=== PATIENT | male | born 1995 | race Asian ===

== ENCOUNTER 2017-05-29 17:03 | Inpatient (IN) | payer OTHER ==
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
[2017-05-29] MEDS ORDERED: ERTAPENEM 1 GM VIAL ONE (17:33)
[2017-05-29 17:35] LABS: PLATELET COUNT 294 10^3/uL (150-400)
[2017-05-30] MEDS ORDERED: NICOTINE POLACRILEX 2 MG GUM B PRN (00:43)
[2017-05-30] MEDS ORDERED: ACETAMINOPHEN 325 MG TAB PO PRN (00:43)
[2017-05-30] MEDS ORDERED: LORazepam 0.5 MG TAB PO PRN ×2 (00:43→11:26)
[2017-05-30] MEDS ORDERED: MAG HYDROX/AL HYDROX/SIMETH 30 ML UDCUP PO PRN (00:44)
[2017-05-30] MEDS ORDERED: MAGNESIUM HYDROXIDE 30 ML UDCUP PO PRN (00:44)
[2017-05-30 01:45] VITALS: O2SAT 97
[2017-05-30] MEDS ORDERED: IBUPROFEN 200 MG TAB PO PRN (11:26)
[2017-05-30] MEDS ORDERED: hydrOXYzine HCL 25 MG TAB PO PRN (12:10)
[2017-05-30] MEDS: FLUoxetine 10 MG CAP PO SCH (12:50)
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
--- NOTE | 2017-05-30 16:39 | BCON ---
[f rep st] BEHAVIORAL HEALTH CONSULTATION INTERNAL MEDICINE CONSULTATION DATE OF CONSULTATION: 05/30/2017 REFERRING PHYSICIAN: Kenan Salamanca MD REASON FOR REFERRAL: Medical clearance for inpatient behavioral health stay. HISTORY OF PRESENT ILLNESS: This patient came to the emergency department from [facility] on an M1 hold. His aunt with whom he lives, had taken him to [facility] because he had reported to her an overdose on Adderall in an attempt at self-harm. He was depressed and distraught over a recent break-up with his girlfriend. He was evaluated by the mental health team and admitted for further psychiatric care. He is currently without any medical complaints. PAST MEDICAL HISTORY: 1. Asthma. 2. Attention deficit hyperactivity disorder. 3. Recurrent depressive episodes. PAST SURGICAL HISTORY: He had eye surgery when he was a child. He does not know what kind of surgery or reason for it. MEDICATIONS: Prior to admission he was taking ibuprofen and Adderall. ALLERGIES: Listed to eggs. 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 He lives with his aunt. He is from [place]. He is a nonsmoker and nondrinker. FAMILY HISTORY: Noncontributory. REVIEW OF SYSTEMS: He reports chronic back pain. He reports that his weight typically fluctuates and on chart review there is an 8 kg weight gain documented since December of 2015. He denies any difficulty breathing. He denies any visual problems. Otherwise a 10-point review of systems is negative. PHYSICAL EXAM: VITAL SIGNS: Blood pressure is 116/65, heart rate is 110, respiratory rate is 20, oxygen saturation is 97% on room air. Temperature is 37 degrees centigrade. GENERAL: This is a well-nourished, well-developed, overweight man, appears his chronologic age, cooperative, and in no acute distress. HEENT: Extraocular movements are intact. Pupils are equal, round, and reactive to light. Mucous membranes are moist. Dentition is in good condition. He has an uncrowded airway, Mallampati class 1. NECK: Supple. HEART: There is a regular rate and rhythm with no murmurs, rubs, or gallops. LUNGS: Clear to auscultation bilaterally. ABDOMEN: Benign. NEUROLOGIC: He is alert and oriented x3. Cranial nerves 2-12 are grossly intact. There is no focal weakness. Sensation is intact to light touch and gait is within normal limits. LABORATORY STUDIES: From yesterday in the emergency department and today, CBC revealed microcytosis with his MCV small at 71.8. He also had reduced mean cellular hemoglobin and mean cellular hemoglobin content and a large RDW at 16.5. Otherwise, there was no anemia and there were normal white count and platelet count. Serum chemistry revealed normal renal function and electrolytes. Liver function tests were within normal limits. Lipid panel showed a high normal cholesterol at 200, but a very high HDL cholesterol at 90. TSH was 1.15. Toxicology screen in the urine was non-negative for amphetamines and was otherwise negative for substances of abuse. ASSESSMENT/RECOMMENDATIONS: 1. Mental health issues pending further evaluation and management per Psychiatry and the mental health team. 2. Overweight status and gradual weight gain. Might exercise caution with medications that could cause further weight gain, however his psychosocial stabilization takes first priority at present. 3. Stimulant overdose and tachycardia. Reportedly, he vomited the overdose of Adderall so the tachycardia may not be related to stimulant use. He did not appear tachycardic on the current exam and he is not in any distress. Advise continued monitoring of his heart rate and if he remains tachycardic, obtaining an EKG would be in order. 4. Microcytosis. As he is from origin he could have a thalassemia variant. There was no anemia. It is possible that there is iron deficiency. Since there is no anemia I will not pursue this diagnosis further at this time, but he can follow up with primary care after his discharge. I see no medical contraindications to this patient's continued stay on the inpatient behavioral health unit or to any psychiatric medications or procedures. Thank you very much for including me in the care of this patient and please do not hesitate to contact me or the hospitalist service should there be need for further medical evaluation. /[id number]/MODL MTDD
[2017-05-31] MEDS: FLUoxetine 10 MG CAP PO SCH (08:39)
--- NOTE | 2017-05-31 10:50 | SOAPPROG ---
SOAP Progress Note Assessment/Plan: Assessment: Major Depressive Disorder, recurrent severe Unspecified Anxiety Disorder ADHD inattentive type R/O Adjustment Disorder or Personality Disorder R/O Bipolar Disorder type II Patient appears less anxious and less dysphoric today and denies suicidal thoughts. Plan: Patient is on M-1 hold SP1 precautions Monitor mood/affect, judgment; encouraged patient to work on safety plan Supportive therapy regarding relationship problems; reviewed strengths, goals, supports Continue Fluoxetine 10mg QAM, started 05/30 Continue Hydroxyzine 25mg PRN anxiety/sleep, started 05/30 Restart Adderall 10mg QAM. Discussed risk of anxiety and possible interaction with Fluoxetine (nausea, insomnia, irritability) Discussed risk of katja, agitation, worsening SI with antidepressants Coordinate discharge planning with [facility] 05/31/17 10:50 Subjective: CC: "OK" Patient reports feeling "OK" this AM. Reports difficulty falling asleep and took Hydroxyzine last night with benefit with sleep. Denies side effects from Fluoxetine other than possible mild restlessness. Denies feeling sedated. Reports in past year having excessive worry about girlfriend and spending hours a day calling her and checking on her and doing things for her 'she is sensitive and needy.' Due to excessive worry about her and excessive time with her has had a decline in grades. Reports this AM not feeling suicidal 'I would never do that to my aunt again.' Reports goal of doing well in school and requests Adderall be restarted so he can ready his philosophy book. Reports goal of 'getting a good job and making money so I can travel' and reports wanting to be a policy writer in the future. Reports feeling less overwhelmed by anxiety and worry about GF today. Unable to explain what will happen if GF rejects him again. Objective: Vital Signs Temp Pulse Resp BP Pulse Ox 37.0 C 110 H 20 116/65 97 05/30/17 01:43 05/30/17 01:43 05/30/17 01:43 05/30/17 01:43 05/30/17 01:43 Alert male with glasses. Pleasant and cooperative. Speech soft , regular rate and rhythm. Mood 'OK.' Affect euthymic with brief smiling. Thoughts organized. Denies thoughts of or suicide or hopelessness. Denies violent thoughts or HI or AH or paranoia. Fair insight. TSH, HgbA1c, Lipids, LFTs WNL Staff report patient slept 10 hours after taking Hydroxyzine 25mg. Calm and pleasant on unit, met with aunt during visiting hours. - Time Spent With Patient Time Spent With Patient: 20 minutes - Pending Discharge Pending Discharge Within 24 Hours: Yes Pending Discharge Date: 06/01/17 Pending Discharge Time: 11:00 ICD10 Worksheet Patient Problems: Problems Problem Status Onset Major depressive disorder, recurrent episode with anxious distress Acute
[2017-05-31] MEDS: ADDERALL 10 MG TAB PO SCH (10:54)
[2017-06-01 08:05] VITALS: BP 98/60; PULSE 82; RESP 16; TEMP 97.5
[2017-06-01] MEDS: FLUoxetine 10 MG CAP PO SCH (08:23)
[2017-06-01] MEDS: ADDERALL 10 MG TAB PO SCH (08:23)
--- NOTE | 2017-06-01 15:08 | BDS ---
[f rep st] BEHAVIORAL HEALTH DISCHARGE SUMMARY IDENTIFICATION: This is a 22-year-old single, male who lives with his aunt. 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 He was born and raised in [place]. REASON FOR ADMISSION: Please see initial psychiatric evaluation from May 30, 2017. The patient reported to his aunt that he felt suicidal after a break-up with his girlfriend. He had taken 3 Adderall tablets as an overdose attempt, told his aunt, and then she took him to [facility]. There, he was placed on an M1 hold by his outpatient psychiatrist, Dr. Valentin, and then he went to the [facility] Department. He was then admitted to [address] [place] [address]. HOSPITAL COURSE: Patient reports that he has had depression and anxiety symptoms and a decline in school functioning for about a year concurrent with a chaotic relationship with a girlfriend. He reports approximately 6 break ups and reunions with his current girlfriend in the past year. He reports that she had an in the fall of 2016, and that they had another break up several days prior to the current admission. The patient reports he has had low energy, low activity, feeling hopeless, helpless, along with feeling anxious and worried about his girlfriend and her behavior. He also reports some sleep disturbance and fatigue as well. He denied any history of grandiosity, decreased need for sleep, or sustained elevated energy. He reports chronic restlessness and inattention and has been diagnosed with attention deficit hyperactivity disorder and treated with Adderall for several years. He denied any violent thoughts, hallucinations, or substance abuse. He did denied prior suicide attempts or psychiatric hospitalizations. On the unit, the patient was provided with education about major depressive disorder. He was agreeable to start fluoxetine for depression. The patient was given a handout on fluoxetine from the [employer] outlining side effects including the risk of agitation, katja, increased suicidal thoughts, drug interactions, and risk of bleeding. The patient was given a handout on bipolar disorder to monitor for manic symptoms while taking an antidepressant as the patient had an aunt and uncle that had severe mental illness. The patient tolerated 10 mg of fluoxetine without side effects. His Adderall dose was reduced to 10 mg daily as he was having sleep disturbance at night. He was given p.r.n. hydroxyzine 25 mg for insomnia one time on the unit. On the unit, the patient had marked improvement in mood and affect after supportive psychotherapy regarding his relationship problems and his need to focus on his own mental health stability and his school work. The patient had visits from his aunt that went well. He also spoke to other family on the phone. The patient was more future oriented, more hopeful about the future, was able to complete a safety plan prior to discharge. He was calm, pleasant, able to attend groups, and did not appear to be in severe emotional distress on the unit. The patient was able to outline multiple coping skills, strengths, and supports that he could use after discharge. CONDITION ON DISCHARGE: He is an alert, male in no acute distress. He is ambulatory, cooperative, and pleasant with glasses. He has fair eye contact. His speech is regular rate and rhythm. His mood is "pretty good." His affect is euthymic and pleasant. His thoughts are organized. He denies any thoughts to hurt himself. He denies any violent thoughts. He denies auditory hallucinations or paranoia. His memory is fair. His insight is fair. His judgment is appropriate. CONSULTATIONS: The patient had a baseline physical exam by Dr. Richmond who is the hospitalist on May 30, 2017. PROCEDURES: None. LABORATORIES PENDING: None. LABORATORY RESULTS: White blood cell count 4.9, hemoglobin 16, platelet count 294. Sodium 140, potassium 3.7, creatinine 0.9, glucose 76. Hemoglobin A1c 5.4. Calcium 9.5, AST 23, ALT 33. Lipid panel was within normal limites. TSH 1.1. Urine drug screen was positive for amphetamines only, but the patient was prescribed 25 mg of Adderall daily from his outpatient provider. DISCHARGE DIAGNOSES: Major depressive disorder, recurrent, severe, without psychotic features. Unspecified anxiety disorder. 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 Rule out adjustment disorder. DISCHARGE MEDICATIONS: Fluoxetine 10 mg p.o. q.a.m. #30 in a bubble pack; Adderall 10 mg by mouth daily in the morning, 30 days bubble pack; and hydroxyzine 25 mg p.o. q.6 hours p.r.n. for severe anxiety or insomnia, #10, bubble pack, no refills. DISPOSITION: The patient is leaving the unit with his aunt. FOLLOWUP: The patient has followup mental health treatment at [facility]. He was given information about private practice providers in the community that he can use after his 6 sessions at [facility]. LEGAL STATUS: He was admitted on M1 hold and discharged to be receiving outpatient treatment on a voluntary basis. ADDENDUM: Patient was given handouts on fluoxetine and hydroxyzine to read to monitor for side effects. He was also given information about the risks of antidepressants inducing bipolar disorder or increased suicidal thoughts. He was also counseled not to drive within 8 hours of taking a p.r.n. hydroxyzine due to the risk of sedation. /[id number]/MODL MTDD
== END 2017-06-01 13:06 | disposition home or self-care (01) | DRG 885 ==
LOC: EEVIPCON 17:03 → BBEH 05-30 00:10
PROVIDERS: ADMIT Psychiatry & Neurology Psychiatry
DX: F33.2 Major depressive disorder, recurrent severe without psychotic features (principal); F41.9 Anxiety disorder, unspecified; F90.9 Attention-deficit hyperactivity disorder, unspecified type; E66.3 Overweight; J45.909 Unspecified asthma, uncomplicated
CPT/HCPCS: 80305; J1335